=== PATIENT | female | born 1945 | race Caucasian/White ===

== ENCOUNTER 2017-07-02 04:10 | Emergency (ER) | payer MEDICARE ==
[~2017-07-02] VITALS: Ht 167.6 cm; Wt 75.0 kg
[2017-07-02] MEDS ORDERED: normal saline 1000ml 1,000 ML IV ONE (04:30)
[2017-07-02] MEDS ORDERED: dexamethasone sod phosphate 10mg/ml inj IV STA (04:32)
[2017-07-02] MEDS ORDERED: ondansetron/PF 4mg/2ml inj IV ONE (04:35)
[2017-07-02] MEDS ORDERED: morphine 2 MG/ML inj. syringe IV ONE (04:35)
[2017-07-02 04:50] LABS: BASOPHILS # (AUTO) 0.1 X10'3 (0-0.2); BASOPHILS % (AUTO) 0.6 % (0-1); EOSINOPHILS # (AUTO) 0.3 X10'3 (0-0.9); EOSINOPHILS % (AUTO) 2.5 % (0-6); HEMOGLOBIN 14.1 g/dl (12.0-16.0); LYMPHOCYTES # (AUTO) 3.9 X10'3 (1.1-4.8); LYMPHOCYTES % (AUTO) 31.8 % (21-51); MEAN CORPUSCULAR HGB CONC 35.3 % (33.0-36.5); MEAN CORPUSCULAR VOLUME 85.2 FL (78-98); MEAN PLATELET VOLUME 8.9 FL (7.4-10.4); MONOCYTES # (AUTO) 1.1 X10'3 (0-0.9); MONOCYTES % (AUTO) 9.3 % (2-12); NEUTROPHILS # (AUTO) 6.8 X10'3 (1.8-7.7); NEUTROPHILS % (AUTO) 55.8 % (42-75); PLATELET COUNT 254 X10'3 (140-440); RED CELL DISTRIBUTION WIDTH 13.4 % (11.5-14.5); WHITE BLOOD COUNT 12.1 X10'3 (4.5-11.0)
[2017-07-02 05:01] LABS: ALBUMIN 3.7 G/DL (3.4-5.0); ANION GAP 15 (8-16); BLOOD UREA NITROGEN 16 MG/DL (7-18); BUN/CREATININE RATIO 14.5 (6.6-38.0); CALCIUM 8.8 MG/DL (8.5-10.1); CHLORIDE 102 MMOL/L (99-107); GLUCOSE 103 MG/DL (70-104); POTASSIUM 3.6 MMOL/L (3.5-5.1); SODIUM 140 MMOL/L (135-145); TOTAL CARBON DIOXIDE 22.7 MMOL/L (24-32); eGFR 49 ML/MIN
[2017-07-02] MEDS ORDERED: TRAM50TA2 PO (05:34)
[2017-07-02] MEDS ORDERED: AMOX-441 PO (05:34)
[2017-07-02] MEDS ORDERED: LIDOcaine Viscous 15ml cup MM PRN (05:50)
[2017-07-02 06:07] VITALS: BP 150/72
== END 2017-07-02 06:09 | disposition home or self-care (01) ==
LOC: ER 04:12
DX: J02.9 Acute pharyngitis, unspecified (principal); Z88.5 Allergy status to narcotic agent
CPT/HCPCS: 36415; 80048; 85025; 87081; 87880; 96361; 96374; 96375; 99285; J1100; J2270; J2405; J7030

== ENCOUNTER 2021-07-12 12:57 | Emergency (ER) | payer MEDICARE ==
[~2021-07-12] VITALS: Ht 170.2 cm; Wt 86.0 kg
[~2021-07-12 12:57] MED LIST: HYDR-4318 PO; LEVO137T19 PO; LOVA40TA2 PO; PANT40TA54 PO
[2021-07-12 13:02] VITALS: BP 174/81
[2021-07-12] MEDS ORDERED: HYDROcodone/acetaminophen 10/325mg tab PO ONE (15:55)
[2021-07-12] MEDS ORDERED: HYDR-3972 PO ×2 (16:03→16:10)
== END 2021-07-12 17:00 | disposition home or self-care (01) ==
LOC: ER 12:58
DX: M79.631 Pain in right forearm (principal); M25.531 Pain in right wrist; M79.641 Pain in right hand; Z90.49 Acquired absence of other specified parts of digestive tract; Z98.890 Other specified postprocedural states; Z88.8 Allergy status to other drugs, medicaments and biological substances; Z79.899 Other long term (current) drug therapy; W19.XXXA Unspecified fall, initial encounter; Y93.01 Activity, walking, marching and hiking; Y92.89 Other specified places as the place of occurrence of the external cause; Y99.8 Other external cause status; S09.90XA Unspecified injury of head, initial encounter; S06.0X0A Concussion without loss of consciousness, initial encounter
CPT/HCPCS: 70450; 70486; 72125; 73060; 73080; 73090; 73110; 99284

== ENCOUNTER 2023-12-28 11:24 | Emergency (ER) | payer OTHER ==
[~2023-12-28] VITALS: Ht 167.6 cm; Wt 78.7 kg
[~2023-12-28 11:24] MED LIST changes: +ALEN70TA60 PO; +AMI200T PO; +APIX5TAB3 PO; +CALC-1215 PO; +CARV6.2513 PO; +FERR-119 PO; -LEVO137T19 PO; +LEVO75TA7 PO; +MECO10005 PO; -PANT40TA54 PO; +POTA99CA PO
[2023-12-28 11:42] VITALS: BP 110/51; PULSE 64; TEMP 98.2; O2SAT 97
[2023-12-28 12:49] VITALS: RESP 16
[2023-12-28] MEDS: HYDROcodone/acetaminophen 10/325mg tab PO ONE (12:49)
[2023-12-28 13:15] LABS: BASOPHILS # (AUTO) 0.1 X10'3 (0-0.2); BASOPHILS % (AUTO) 1.3 % (0-1); EOSINOPHILS # (AUTO) 0.2 X10'3 (0-0.9); EOSINOPHILS % (AUTO) 2.5 % (0-6); HEMATOCRIT 36.5 % (35.0-45.0); HEMOGLOBIN 12.1 g/dl (12.0-16.0); LYMPHOCYTES # (AUTO) 3.1 X10'3 (1.1-4.8); MEAN CORPUSCULAR HEMOGLOBIN 30.2 PG (27.0-31.0); MEAN CORPUSCULAR HGB CONC 33.2 g/dL (33.0-36.5); MEAN PLATELET VOLUME 9.4 FL (7.4-10.4); MONOCYTES # (AUTO) 0.9 X10'3 (0-0.9); MONOCYTES % (AUTO) 8.5 % (2-12); NEUTROPHILS # (AUTO) 5.7 X10'3 (1.8-7.7); NEUTROPHILS % (AUTO) 56.7 % (42-75); PLATELET COUNT 292 X10'3 (140-440); RED BLOOD COUNT 4.01 X10'6 (4.20-5.60); RED CELL DISTRIBUTION WIDTH 14.4 % (11.5-14.5)
[2023-12-28 13:20] LABS: INR 1.1 INR; PROTHROMBIN TIME 11.6 SECONDS (9.0-12.0)
[2023-12-28 13:22] LABS: ALBUMIN 3.6 G/DL (3.4-5.0); ANION GAP 7 (8-16); BLOOD UREA NITROGEN 24 MG/DL (7-18); BUN/CREATININE RATIO 16.4 (10.0-20.0); CALCIUM 9.1 MG/DL (8.5-10.1); CHLORIDE 102 MMOL/L (99-107); CREATININE 1.46 MG/DL (0.40-0.90); GLUCOSE 98 MG/DL (70-104); POTASSIUM 3.6 MMOL/L (3.5-5.1); SODIUM 138 MMOL/L (135-145); TOTAL CARBON DIOXIDE 29.3 MMOL/L (24-32); eCRCL 30 ML/MIN; eGFR 35 ML/MIN
== END 2023-12-28 14:53 | disposition home or self-care (01) ==
LOC: ER 11:25
DX: S09.8XXA Other specified injuries of head, initial encounter (principal); F03.90 Unspecified dementia, unspecified severity, without behavioral disturbance, psychotic disturbance, mood disturbance, and anxiety; I48.91 Unspecified atrial fibrillation; I10 Essential (primary) hypertension; Z90.49 Acquired absence of other specified parts of digestive tract; Z88.8 Allergy status to other drugs, medicaments and biological substances; Z79.899 Other long term (current) drug therapy; Z98.890 Other specified postprocedural states; W01.0XXA Fall on same level from slipping, tripping and stumbling without subsequent striking against object, initial encounter; Y93.89 Activity, other specified; Y92.89 Other specified places as the place of occurrence of the external cause; Y99.8 Other external cause status
CPT/HCPCS: 36415; 70450; 72125; 73560; 80048; 84145; 85025; 85610; 99284

== ENCOUNTER 2023-12-31 09:37 | Emergency (ER) | payer OTHER ==
[~2023-12-31] VITALS: Ht 170.2 cm; Wt 67.2 kg
[2023-12-31 09:41] VITALS: TEMP 97.7
[2023-12-31 10:03] LABS: BASOPHILS # (AUTO) 0.1 X10'3 (0-0.2); BASOPHILS % (AUTO) 1.5 % (0-1); EOSINOPHILS # (AUTO) 0.2 X10'3 (0-0.9); EOSINOPHILS % (AUTO) 2.5 % (0-6); HEMATOCRIT 36.2 % (35.0-45.0); HEMOGLOBIN 12.3 g/dl (12.0-16.0); LYMPHOCYTES # (AUTO) 3.4 X10'3 (1.1-4.8); MEAN CORPUSCULAR HEMOGLOBIN 31.1 PG (27.0-31.0); MEAN CORPUSCULAR VOLUME 91.5 FL (78-98); MEAN PLATELET VOLUME 8.9 FL (7.4-10.4); MONOCYTES # (AUTO) 0.9 X10'3 (0-0.9); MONOCYTES % (AUTO) 9.8 % (2-12); NEUTROPHILS # (AUTO) 4.1 X10'3 (1.8-7.7); NEUTROPHILS % (AUTO) 47.2 % (42-75); PLATELET COUNT 283 X10'3 (140-440); RED BLOOD COUNT 3.96 X10'6 (4.20-5.60); RED CELL DISTRIBUTION WIDTH 14.2 % (11.5-14.5); WHITE BLOOD COUNT 8.6 X10'3 (4.5-11.0)
[2023-12-31 10:28] LABS: ALBUMIN 3.4 G/DL (3.4-5.0); ANION GAP 9 (8-16); BLOOD UREA NITROGEN 24 MG/DL (7-18); BUN/CREATININE RATIO 16.4 (10.0-20.0); CALCIUM 8.7 MG/DL (8.5-10.1); CHLORIDE 100 MMOL/L (99-107); CREATININE 1.46 MG/DL (0.40-0.90); GLUCOSE 86 MG/DL (70-104); POTASSIUM 3.3 MMOL/L (3.5-5.1); PRO BRAIN NATRIURETIC PEPTIDE 175 PG/ML (0-450); SODIUM 137 MMOL/L (135-145); TOTAL CARBON DIOXIDE 28.5 MMOL/L (24-32); eGFR 35 ML/MIN
[2023-12-31 15:40] VITALS: BP 123/55; PULSE 67; RESP 13; O2SAT 94
== END 2023-12-31 15:51 | disposition home or self-care (01) ==
LOC: ER 09:37
DX: R53.1 Weakness (principal); R53.81 Other malaise; R40.4 Transient alteration of awareness; I48.91 Unspecified atrial fibrillation; I10 Essential (primary) hypertension; Z88.5 Allergy status to narcotic agent; Z79.899 Other long term (current) drug therapy; Z98.890 Other specified postprocedural states
CPT/HCPCS: 36415; 70450; 71045; 80048; 83880; 84484; 85025; 93005; 99285

== ENCOUNTER 2024-01-20 04:45 | Inpatient (IN) | payer OTHER ==
[~2024-01-20] VITALS: Ht 170.2 cm; Wt 79.3 kg
[~2024-01-20 04:45] MED LIST changes: +HYDR-3972 PO
[2024-01-20] MEDS: normal saline 1000ml 1,000 ML IV ONE (05:11)
[2024-01-20] MEDS: CefTRIAXone 2gm/D5W 50ml BAG 50 ML IV SCH ×2 (05:44→08:15)
[2024-01-20 05:55] LABS: BILIRUBIN,URINE NEGATIVE (Neg); CLARITY,URINE CLEAR (Clear); COLOR,URINE YELLOW (Yellow); GLUCOSE, URINE NEGATIVE (Neg); KETONES,URINE TRACE mg/dl (Neg); LEUKOCYTE ESTERASE ,URINE NEGATIVE (Neg); NITRITES, URINE NEGATIVE (Neg); OCCULT BLOOD,URINE MODERATE (Neg); PH,URINE 5.5 (4.8-8.0); PROTEIN,URINE TRACE mg/dl (Neg); UROBILINOGEN,URINE 0.2 E.U/dL (0.2-1.0)
[2024-01-20 06:00] LABS: UA COLLECTION TYPE STRAIGHT CATH
[2024-01-20 06:00] LABS: BASOPHILS # (AUTO) 0.1 X10'3 (0-0.2); BASOPHILS % (AUTO) 0.9 % (0-1); EOSINOPHILS % (AUTO) 0.3 % (0-6); HEMATOCRIT 33.9 % (35.0-45.0); HEMOGLOBIN 11.3 g/dl (12.0-16.0); LYMPHOCYTES # (AUTO) 1.7 X10'3 (1.1-4.8); LYMPHOCYTES % (AUTO) 26.3 % (21-51); MEAN CORPUSCULAR HEMOGLOBIN 30.6 PG (27.0-31.0); MEAN CORPUSCULAR HGB CONC 33.4 g/dL (33.0-36.5); MEAN CORPUSCULAR VOLUME 91.6 FL (78-98); MONOCYTES # (AUTO) 0.8 X10'3 (0-0.9); NEUTROPHILS # (AUTO) 3.9 X10'3 (1.8-7.7); NEUTROPHILS % (AUTO) 60.5 % (42-75); PLATELET COUNT 163 X10'3 (140-440); RED CELL DISTRIBUTION WIDTH 15.2 % (11.5-14.5); WHITE BLOOD COUNT 6.4 X10'3 (4.5-11.0)
[2024-01-20 06:02] LABS: BACTERIA,URINE FEW /HPF (Neg); WBC,URINE 30-50 /HPF (0-4)
[2024-01-20 06:03] LABS: MUCUS STRANDS MODERATE /LPF (Neg); RENAL CELLS, URINE FEW /HPF; SQUAMOUS EPITHELIAL CELL,UR FEW /LPF (FEW); WBC CLUMPS,URINE FEW /HPF (NEGATIVE)
[2024-01-20 06:11] LABS: ALANINE AMINOTRANSFERASE 26 U/L (12-78); ALBUMIN 3.3 G/DL (3.4-5.0); ALKALINE PHOSPHATASE 67 IU/L (46-116); ANION GAP 11 (8-16); ASPARTATE AMINO TRANSFERASE 28 U/L (10-37); BILIRUBIN,TOTAL 0.8 MG/DL (0.1-1.0); BLOOD UREA NITROGEN 16 MG/DL (7-18); BUN/CREATININE RATIO 9.9 (10.0-20.0); CHLORIDE 99 MMOL/L (99-107); CREATININE 1.62 MG/DL (0.40-0.90); GLUCOSE 89 MG/DL (70-104); POTASSIUM 3.4 MMOL/L (3.5-5.1); SODIUM 134 MMOL/L (135-145); TOTAL CARBON DIOXIDE 24.1 MMOL/L (24-32); TOTAL PROTEIN 6.5 G/DL (6.4-8.2); eCRCL 28 ML/MIN; eGFR 31 ML/MIN
[2024-01-20] MEDS ORDERED: hydrocortisone sod succ/PF 100mg/2ml inj. IV SCH (06:15)
--- NOTE | 2024-01-20 06:21 | NUR ---
DUE TO PTS COVID POSITIVE STATUS, ROOM DOOR CLOSED AND ISOLATION CART/APPROPRIATE SIGNAGE PLACED OUTSIDE ROOM
[2024-01-20] MEDS: hydrocortisone sod succ/PF 100mg/2ml inj. IV ONE (06:40)
[2024-01-20] MEDS ORDERED: magnesium sulf-water 2g/50mL 50 ML IV PRN (07:45)
[2024-01-20] MEDS ORDERED: ondansetron/PF 4mg/2ml inj IV PRN (07:45)
[2024-01-20] MEDS ORDERED: acetaminophen 325mg tablet PO PRN ×2 (07:45)
[2024-01-20] MEDS ORDERED: magnesium sulf-water 4G/100mL 100 ML IV PRN (07:45)
[2024-01-20] MEDS ORDERED: magnesium Cl slow-release 64mg tablet PO PRN (07:45)
[2024-01-20] MEDS ORDERED: bisacodyl 10mg suppository rectal RC PRN (07:45)
[2024-01-20] MEDS ORDERED: potassium Cl 20 mEq SR tablet PO PRN ×2 (07:45)
[2024-01-20] MEDS: heparin, porcine 5000 units/ml vial SQ SCH (08:00)
[2024-01-20] MEDS ORDERED: oxybutynin 5mg tablet PO SCH (08:00)
[2024-01-20] MEDS: normal saline 1000ml 1,000 ML IV SCH (08:14)
--- NOTE | 2024-01-20 08:16 | NUR ---
Non admin heparin due to home eliquis, will verify with MD at bedside
[2024-01-20 11:00] VITALS: BP 124/53; PULSE 63; RESP 16; TEMP 97.5; O2SAT 94
[2024-01-20] MEDS: potassium Cl 40MEQ/1/2NS 520ml 520 ML IV PRN (13:00)
[2024-01-20 14:41] LABS: D-DIMER 0.54 MG/L FEU (0-0.50)
[2024-01-20 14:52] LABS: C-REACTIVE PROTEIN 2.03 MG/DL (0.0-0.5); THYROID STIMULATING HORMONE 0.01 ulU/ml (0.34-4.50)
--- NOTE | 2024-01-20 15:59 | NUR ---
Dentures brought in by Thierry .
--- NOTE | 2024-01-20 16:02 | NUR ---
Thierry now has tested for covid as well and will not be coming back up to the floor at this time to visit.
--- NOTE | 2024-01-20 18:48 | NUR ---
Report given to Samuel DE LEON, patient doing well, lying in bed. No current distress or new concerns.
[2024-01-20 19:00] VITALS: BP 150/69; PULSE 75; RESP 18; TEMP 96.6; O2SAT 98
[2024-01-20 20:00] VITALS: RESP 16; O2SAT 93
[2024-01-20] MEDS: hydrocortisone 10mg tablet PO SCH (20:24)
[2024-01-20] MEDS: apixaban 5mg tablet PO SCH (20:24)
[2024-01-20 22:00] VITALS: BP 148/54; PULSE 63; RESP 18; TEMP 97.1; O2SAT 98
[2024-01-21 04:18] LABS: BASOPHILS % (AUTO) 0.5 % (0-1); EOSINOPHILS % (AUTO) 0.2 % (0-6); HEMATOCRIT 29.3 % (35.0-45.0); HEMOGLOBIN 9.8 g/dl (12.0-16.0); LYMPHOCYTES # (AUTO) 1.4 X10'3 (1.1-4.8); LYMPHOCYTES % (AUTO) 22.2 % (21-51); MEAN CORPUSCULAR HEMOGLOBIN 30.2 PG (27.0-31.0); MEAN CORPUSCULAR HGB CONC 33.5 g/dL (33.0-36.5); MEAN CORPUSCULAR VOLUME 90.3 FL (78-98); MEAN PLATELET VOLUME 8.7 FL (7.4-10.4); MONOCYTES # (AUTO) 0.7 X10'3 (0-0.9); MONOCYTES % (AUTO) 10.6 % (2-12); NEUTROPHILS # (AUTO) 4.2 X10'3 (1.8-7.7); NEUTROPHILS % (AUTO) 66.5 % (42-75); PLATELET COUNT 160 X10'3 (140-440); RED BLOOD COUNT 3.25 X10'6 (4.20-5.60); RED CELL DISTRIBUTION WIDTH 15.1 % (11.5-14.5); WHITE BLOOD COUNT 6.3 X10'3 (4.5-11.0)
[2024-01-21 04:25] LABS: ALANINE AMINOTRANSFERASE 44 U/L (12-78); ALBUMIN 2.7 G/DL (3.4-5.0); ALBUMIN/GLOBULIN RATIO 0.9 (1.1-1.5); ALKALINE PHOSPHATASE 51 IU/L (46-116); ANION GAP 8 (8-16); ASPARTATE AMINO TRANSFERASE 76 U/L (10-37); BILIRUBIN,TOTAL 0.3 MG/DL (0.1-1.0); BLOOD UREA NITROGEN 12 MG/DL (7-18); CALCIUM 7.6 MG/DL (8.5-10.1); CHLORIDE 106 MMOL/L (99-107); CREATININE 0.92 MG/DL (0.40-0.90); GLUCOSE 102 MG/DL (70-104); POTASSIUM 3.7 MMOL/L (3.5-5.1); SODIUM 138 MMOL/L (135-145); TOTAL CARBON DIOXIDE 24.1 MMOL/L (24-32); TOTAL PROTEIN 5.7 G/DL (6.4-8.2); eCRCL 49 ML/MIN; eGFR 59 ML/MIN
[2024-01-21 06:00] VITALS: BP 157/64; PULSE 75; RESP 18; O2SAT 96
--- NOTE | 2024-01-21 06:38 | NUR ---
Problems reprioritized. Patient report given, questions answered & plan of care reviewed with KYRIE Menard.
--- NOTE | 2024-01-21 06:53 | NUR ---
Patient in room [facility]. I have received report from Shefali and had the opportunity to ask questions and assume patient care.
[2024-01-21 08:00] VITALS: RESP 18; O2SAT 96
[2024-01-21] MEDS ORDERED: amiodarone 200mg tablet PO SCH (08:00)
[2024-01-21] MEDS ORDERED: ferrous sulfate 325mg tablet PO SCH ×2 (08:00→09:18)
[2024-01-21] MEDS: MECOBALAMIN 1000 MCG PO SCH (08:00)
[2024-01-21] MEDS ORDERED: amiodarone 100mg tablet PO SCH (09:18)
[2024-01-21 10:00] VITALS: BP 151/60; PULSE 66; RESP 16; TEMP 97.9; O2SAT 97
[2024-01-21] MEDS: atorvastatin 10mg tablet PO SCH (10:11)
[2024-01-21] MEDS: ferrous sulfate 325mg tablet PO SCH (10:11)
[2024-01-21] MEDS: levoTHYROXINE 75mcg tablet PO SCH (10:12)
[2024-01-21] MEDS: amiodarone 100mg tablet PO SCH (10:12)
--- NOTE | 2024-01-21 14:26 | NUR ---
Reviewed and agree with Sailaja MITTAL's assessment
--- NOTE | 2024-01-21 14:54 | NUR ---
PRESSURE ULCER EDUCATION: DEFINITION: A pressure ulcer is an area of skin that breaks down when you stay in one position too long. The constant pressure against the skin reduces the blood flow to that area and the affected tissue dies. CAUSES: "Being bedridden or in a wheelchair "Fragile skin "Having a chronic condition, such as diabetes or vascular disease "Inability to move certain parts of your body without assistance "Older age "Incontinence of urine or stool SYMPTOMS: "A reddened area that DOES NOT turn white when pressed on - this can be the beginning of a pressure ulcer "A blister, deep sore or a crater - these can be advanced pressure ulcers FIRST AID: "Relieve the pressure on this area "Keep the area clean and dry "Call your primary doctor if you see any of the above symptoms "DO NOT massage the area "DO NOT use a donut shaped or ring shaped pillow- these actually interfere with the blood flow and cause complications PREVENTION: "Check for pressure ulcers everyday "Change position at least every two hours to relieve pressure "Use items that help relieve pressure- pillows, sheepskin, foam padding, and powders. "Keep skin clean and dry "Eat healthy well balanced meals "Exercise daily IF YOU SEE ANY OF THESE SYMPTOMS WHILE IN THE HOSPITAL - TELL YOUR NURSE IMMEDIATELY. IF YOU SEE ANY OF THESE SYMPTOMS WHILE AT HOME OR HAVE ANY QUESTIONS OR CONCERNS ABOUT PRESSURE ULCERS - CALL YOUR PRIMARY DOCTOR IMMEDIATELY. Addendum: 01/21/24 at 1454 by Alyson Hensley RN Amended: Links added.
[2024-01-21] MEDS ORDERED: ondansetron 4mg rapidly disintigrating tab PO PRN (15:15)
--- NOTE | 2024-01-21 15:18 | NUR ---
Malnutrition Consult: Pt admit DX UTI, CKD 3, and COVID w/ hx dementia unsure of fluid intake CLINICAL LABORATORY AIDE per MD note. Pt reports unsure of wt loss CLINICAL LABORATORY AIDE but also 2-13 pounds wt loss w/ decreased intake per RN Malnutrition Screens in EMR. PO ~17% avg first 3 regular/EC7 diet meals per EMR. RD notified MD recommends REGULATORY INTERN BSS since pt AOx1 per EMR. Will trial Ensure Enlive TIDWM in meantime in hopes of improving nutrition intake- dietary notified. Pt w/ mild weakness, no edema/wounds, and no scaled wt this admit as ER gurney scale currently broken though current wt 150 pounds down from prior bed scaled wt 180 pounds 12/09/23 in EMR. Pt prior wt hx 180-188 pounds past 2 years in EMR; current wt likely outlying error but RD d/w RN regarding actual scaled wt this admit. Malnutrition status pending new wt this admit because if current report wt is accurate would be ~17% UBW loss 1.5 months severe loss. Will monitor updated wt for further malnutrition criteria. Rec: 1. continue regular/EC7 diet per MD; modifications per REGULATORY INTERN recs 2. Ensure Enlive TIDWM; encourage PO meals/ONS 3. Monitor for true scaled wt and PO hx for MVM supplementation needs 4. Bowel regimen per rx 5. Scaled wt this admit; subsequent weekly wt Addendum: 01/21/24 at [address] Amended: Links added.
[2024-01-21] MEDS: lactose-reduced food (Ensure Enlive) - 237ml bottle PO SCH (18:00)
[2024-01-21 18:30] VITALS: BP 159/78; PULSE 69; RESP 16; TEMP 97.7; O2SAT 95
[2024-01-21 22:00] VITALS: BP 147/66; PULSE 74; RESP 18; TEMP 97.9; O2SAT 96
[2024-01-22 04:00] LABS: BASOPHILS % (AUTO) 0.9 % (0-1); EOSINOPHILS % (AUTO) 0.9 % (0-6); HEMATOCRIT 30.8 % (35.0-45.0); HEMOGLOBIN 10.2 g/dl (12.0-16.0); LYMPHOCYTES # (AUTO) 1.4 X10'3 (1.1-4.8); LYMPHOCYTES % (AUTO) 29.8 % (21-51); MEAN CORPUSCULAR HEMOGLOBIN 30.2 PG (27.0-31.0); MEAN CORPUSCULAR HGB CONC 33.1 g/dL (33.0-36.5); MEAN CORPUSCULAR VOLUME 91.4 FL (78-98); MEAN PLATELET VOLUME 8.7 FL (7.4-10.4); MONOCYTES # (AUTO) 0.5 X10'3 (0-0.9); MONOCYTES % (AUTO) 9.5 % (2-12); NEUTROPHILS # (AUTO) 2.9 X10'3 (1.8-7.7); NEUTROPHILS % (AUTO) 58.9 % (42-75); PLATELET COUNT 171 X10'3 (140-440); RED BLOOD COUNT 3.37 X10'6 (4.20-5.60); RED CELL DISTRIBUTION WIDTH 15.2 % (11.5-14.5); WHITE BLOOD COUNT 4.9 X10'3 (4.5-11.0)
[2024-01-22 04:12] LABS: D-DIMER 0.37 MG/L FEU (0-0.50)
[2024-01-22 04:18] LABS: ALANINE AMINOTRANSFERASE 44 U/L (12-78); ALBUMIN 2.8 G/DL (3.4-5.0); ALBUMIN/GLOBULIN RATIO 0.9 (1.1-1.5); ALKALINE PHOSPHATASE 62 IU/L (46-116); ANION GAP 7 (8-16); ASPARTATE AMINO TRANSFERASE 62 U/L (10-37); BILIRUBIN,TOTAL 0.3 MG/DL (0.1-1.0); BLOOD UREA NITROGEN 13 MG/DL (7-18); BUN/CREATININE RATIO 14.6 (10.0-20.0); C-REACTIVE PROTEIN 0.95 MG/DL (0.0-0.5); CALCIUM 8.1 MG/DL (8.5-10.1); CHLORIDE 108 MMOL/L (99-107); CREATININE 0.89 MG/DL (0.40-0.90); GLUCOSE 98 MG/DL (70-104); LACTATE DEHYDROGENASE 223 U/L (81-234); POTASSIUM 4.1 MMOL/L (3.5-5.1); SODIUM 140 MMOL/L (135-145); TOTAL CARBON DIOXIDE 25.5 MMOL/L (24-32); TOTAL PROTEIN 5.9 G/DL (6.4-8.2); eCRCL 51 ML/MIN; eGFR 61 ML/MIN
--- NOTE | 2024-01-22 05:50 | NUR ---
Problems reprioritized. Patient report given, questions answered & plan of care reviewed with LESLY. Addendum: 01/22/24 at 0550 by Darrius Mckeon RN Amended: Links added.
[2024-01-22 06:43] VITALS: BP 169/68; PULSE 63; RESP 18; TEMP 97.4; O2SAT 93
[2024-01-22] MEDS: levoTHYROXINE 25mcg tablet PO SCH (07:49)
[2024-01-22 07:50] VITALS: RESP 18; O2SAT 93
[2024-01-22] MEDS: lisinopril 5mg tablet PO ONE (09:13)
--- NOTE | 2024-01-22 10:50 | NUR ---
F/u 01/21: Pt remains on EC7 diet per POULTRY BARN MANAGER recs PO ~28% avg initial meals and ~75% first two Ensure Enlives per EMR. Current PO meets ~95% protein and ~86% kcal estimated needs. Still pending new wt this admit; RD requested new wt this AM w/ extension service specialist in charge. RD able to reach pt via TC; pt reports possible 4 pounds wt loss past month is unsure of UBW but is enjoying food here. Pt requests hot herbal tea w/ extra lemon/sugar packet BIDLD, likes beef stew and chicken, and dislikes coffee- dietary notified. Using current information provided from pt/EMR; pt currently lacks minimum two malnutrition criteria. Will monitor for further malnutrition criteria and nutrition intervention needs this admit. Rec: 1. continue regular/EC7 diet per MD/POULTRY BARN MANAGER recs 2. Ensure Enlive TIDWM; encourage PO meals/ONS 3. Monitor PO hx for MVM supplementation needs 4. Bowel regimen per rx 5. Scaled wt this admit; subsequent weekly wt Addendum: 01/22/24 at [address] Amended: Links added.
[2024-01-22 12:13] VITALS: BP 142/62; PULSE 58; RESP 16; TEMP 97.6; O2SAT 94
[2024-01-22 18:00] VITALS: BP 166/73; PULSE 63; RESP 20; TEMP 97.3; O2SAT 97
--- NOTE | 2024-01-22 18:16 | NUR ---
PAGER ID: [phone] MESSAGE: [id number]- Fide Juarez to milad[facility] Mecobalamin? its home med but no one io bring in.- Tai [phone]
--- NOTE | 2024-01-22 18:38 | NUR ---
Problems reprioritized. Patient report given, questions answered & plan of care reviewed with MOISES Rosado.
--- NOTE | 2024-01-22 18:40 | NUR ---
Patient in room [facility]. I have received report from MOISES Lujan and had the opportunity to ask questions and assume patient care.
[2024-01-22] MEDS: carvedilol 6.25mg tablet PO SCH (20:31)
[2024-01-22 22:00] VITALS: BP 150/55; PULSE 64; RESP 22; TEMP 97.1; O2SAT 97
[2024-01-23 04:26] LABS: BASOPHILS % (AUTO) 1.1 % (0-1); EOSINOPHILS # (AUTO) 0.1 X10'3 (0-0.9); EOSINOPHILS % (AUTO) 1.9 % (0-6); HEMATOCRIT 28.7 % (35.0-45.0); HEMOGLOBIN 9.6 g/dl (12.0-16.0); LYMPHOCYTES # (AUTO) 1.7 X10'3 (1.1-4.8); MEAN CORPUSCULAR HEMOGLOBIN 30.4 PG (27.0-31.0); MEAN CORPUSCULAR HGB CONC 33.3 g/dL (33.0-36.5); MEAN CORPUSCULAR VOLUME 91.3 FL (78-98); MONOCYTES # (AUTO) 0.4 X10'3 (0-0.9); MONOCYTES % (AUTO) 9.2 % (2-12); NEUTROPHILS # (AUTO) 2.3 X10'3 (1.8-7.7); NEUTROPHILS % (AUTO) 50.8 % (42-75); PLATELET COUNT 171 X10'3 (140-440); RED BLOOD COUNT 3.15 X10'6 (4.20-5.60); RED CELL DISTRIBUTION WIDTH 15.3 % (11.5-14.5); WHITE BLOOD COUNT 4.6 X10'3 (4.5-11.0)
[2024-01-23 04:35] LABS: D-DIMER 0.39 MG/L FEU (0-0.50)
[2024-01-23 04:41] LABS: ALANINE AMINOTRANSFERASE 47 U/L (12-78); ALBUMIN 2.7 G/DL (3.4-5.0); ALBUMIN/GLOBULIN RATIO 0.9 (1.1-1.5); ALKALINE PHOSPHATASE 56 IU/L (46-116); ANION GAP 8 (8-16); ASPARTATE AMINO TRANSFERASE 56 U/L (10-37); BILIRUBIN,TOTAL 0.2 MG/DL (0.1-1.0); BLOOD UREA NITROGEN 12 MG/DL (7-18); BUN/CREATININE RATIO 13.5 (10.0-20.0); C-REACTIVE PROTEIN 0.41 MG/DL (0.0-0.5); CALCIUM 8.1 MG/DL (8.5-10.1); CHLORIDE 107 MMOL/L (99-107); CREATININE 0.89 MG/DL (0.40-0.90); GLUCOSE 97 MG/DL (70-104); LACTATE DEHYDROGENASE 207 U/L (81-234); POTASSIUM 3.8 MMOL/L (3.5-5.1); SODIUM 140 MMOL/L (135-145); TOTAL CARBON DIOXIDE 25.2 MMOL/L (24-32); TOTAL PROTEIN 5.6 G/DL (6.4-8.2); eCRCL 51 ML/MIN; eGFR 61 ML/MIN
--- NOTE | 2024-01-23 06:39 | NUR ---
Problems reprioritized. Patient report given, questions answered & plan of care reviewed with MOISES Figueroa.
--- NOTE | 2024-01-23 06:39 | NUR ---
Patient in room [facility]. I have received report from Ashlee DE LEON and had the opportunity to ask questions and assume patient care.
[2024-01-23 07:00] VITALS: BP 137/55; PULSE 55; RESP 18; TEMP 97.2; O2SAT 97
[2024-01-23 10:00] VITALS: BP 132/55; PULSE 55; RESP 18; TEMP 97.4; O2SAT 94
[2024-01-23] MEDS ORDERED: LEVO25TA7 PO (13:14)
[2024-01-23] MEDS ORDERED: CIPR-259 PO (13:15)
--- NOTE | 2024-01-23 17:15 | NUR ---
Pt discharged plan of care discussed with patient, all questions answered, pt belongings with patient. Patient taken outside and assisted to personal car with as the bus driver/monitor. Patient discharge instructions reviewed with , verbalized understanding.
== END 2024-01-23 16:50 | disposition home health service (06) | DRG 682 ==
LOC: ER 04:46 → ED HOLD 07:47 → SUR 3N 10:40
PROVIDERS: ADMIT Internal Medicine; ATTEND Internal Medicine
DX: N17.0 Acute kidney failure with tubular necrosis (principal); G93.41 Metabolic encephalopathy; U07.1 COVID-19; N39.0 Urinary tract infection, site not specified; E78.5 Hyperlipidemia, unspecified; E03.9 Hypothyroidism, unspecified; F03.90 Unspecified dementia, unspecified severity, without behavioral disturbance, psychotic disturbance, mood disturbance, and anxiety; I12.9 Hypertensive chronic kidney disease with stage 1 through stage 4 chronic kidney disease, or unspecified chronic kidney disease; N18.30 Chronic kidney disease, stage 3 unspecified; Z96.651 Presence of right artificial knee joint; I48.91 Unspecified atrial fibrillation; Z90.49 Acquired absence of other specified parts of digestive tract; Z88.5 Allergy status to narcotic agent; Z79.01 Long term (current) use of anticoagulants; Z79.899 Other long term (current) drug therapy; Z82.0 Family history of epilepsy and other diseases of the nervous system; Z86.73 Personal history of transient ischemic attack (TIA), and cerebral infarction without residual deficits; B95.2 Enterococcus as the cause of diseases classified elsewhere
CPT/HCPCS: 36415; 71045; 80053; 81001; 82948; 83605; 83615; 84443; 85025; 85379; 85651; 86140; 87040; 87077; 87081; 87088; 87186; 87811; 92508; 92616; 93005; 96365; 96375; 97110; 97161; 97530; 99285; A6213; A6250; C1758; G0378; J0696; J1720; J3480; J7030

== ENCOUNTER 2024-04-25 10:03 | Outpatient (CLI) | payer OTHER ==
[~2024-04-25 10:03] MED LIST changes: -HYDR-3972 PO; +LEVO25TA7 PO; -LEVO75TA7 PO
== END 2024-04-25 23:59 | disposition home or self-care (01) ==
LOC: RAD 10:03
PROVIDERS: ATTEND Physician Assistant
DX: R05.9 Cough, unspecified (principal); R07.89 Other chest pain; Z79.01 Long term (current) use of anticoagulants; Z79.899 Other long term (current) drug therapy
CPT/HCPCS: 74230